=== PATIENT | female | born 1960 | race Caucasian/White ===

== ENCOUNTER 2018-05-14 11:50 | Inpatient (IN) | payer BC ==
--- NOTE | 2018-05-14 11:55 | PDOC ---
History of Present Illness - General Chief Complaint: Cold Symptoms Stated Complaint: fever,cough Time Seen by Provider: 05/14/18 11:54 - History of Present Illness Initial Comments: 05/14/18 12:21 The patient is a 58 year old female with a history of HTN, Asthma who presents for evaluation of cough, difficulty breathing, and fever. The patient reports a several day history of worsening non-productive cough with associated shortness of breath and subjective fevers. The patient states that her symptoms initially began has sinus congestion, but notes they have progressively worsened with notable chills and night sweats. The patient was being evaluated by her union organizer Dr. Iker koch who sent her to the ED for admission. The patient otherwise denies chest pain, nausea, vomiting, abdominal pain, or changes with urination or bowel movements. Past History - Past Medical History Allergies/Adverse Reactions: Allergies Allergy/AdvReac Type Severity Reaction Status Date / Time doxycycline Allergy Severe anaphylaxis Verified 05/14/18 11:51 clarithromycin Allergy Verified 05/14/18 14:16 methazolamide Allergy Verified 05/14/18 11:53 Sulfa (Sulfonamide Allergy Lip Verified 05/14/18 11:51 Antibiotics) swelling Home Medications: Ambulatory Orders Butalb/Acetaminophen/Caffeine [[id number] [id number]] 1 each PO DAILY 05/14/18 Asthma: Yes COPD: No DVT: No HTN: Yes - Suicide/Smoking/Psychosocial Hx Smoking History: Never smoked Substance Use Type: None Review of Systems - Review of Systems Comments:: 05/14/18 12:25 Constitutional: Subjective fevers, Chills, Body aches. No fatigue, HEENT: No Rhinorrhea, nasal congestion, visual changes Cardiovascular: No chest pain, syncope, palpitations, lightheadedness Respiratory: Cough, SOB. Chest congestion. No Hemoptysis, Gastrointestinal: No Abdominal pain, Nausea, Vomiting, Constipation, Diarrhea, Melena Genitourinary: No Dysuria, Frequency, Urgency, Hesitancy, Hematuria, Flank pain Musculoskeletal: No Myalgia, arthralgia Skin: No rashes, itching, bruising, pallor Neurologic: No Headache, Dizziness, Numbness, Weakness, or Tingling Psychiatric: No Hallucinations. No SI or HI *Physical Exam - Physical Exam Comments: 05/14/18 12:26 General Appearance: Nourished. No Apparent Distress HEENT: No Pharyngeal Erythema, Tonsillar Exudate, Tonsillar Erythema Neck: No Cervical Lymphadenopathy Respiratory/Chest: Diffuse inspiratory and expiratory wheezing on exam with diffuse rhonchi Cardiovascular: Regular Rhythm, Regular Rate. No Murmur, Gallops, Rubs Gastrointestinal/Abdominal: Normal Bowel Sounds, Soft. No Guarding, Rebound, Tenderness Musculoskeletal: No CVA Tenderness Extremity: Normal Capillary Refill Integumentary: Normal Color, Dry, Warm Neurologic: Fully Oriented, Alert, Normal Mood/Affect, Normal Response, 05/14/18 12:56 Heart Score/ECG Review #1 ECG reviewed & interpreted by me at: 12:40 General ECG Interpretation: Sinus Rhythm, Normal Intervals, No acute ischemic changes 05/14/18 12:40 Sinus Tachycardia ED Treatment Course - LABORATORY CBC & Chemistry Diagram: 05/15/18 08:22 05/15/18 08:22 Medical Decision Making - Medical Decision Making 05/14/18 12:27 The patient is a 58 year old female with a history of HTN, Asthma who presents for evaluation of cough, difficulty breathing, and fever. Differential includes but is not limited to: Asthma Exacerbation, Pneumonia, Infectious, Metabolic Derangement. Given the patient's history and physical exam, we will obtain a cbc, cmp, troponin, lactate, vbg, ekg, ua, urine culture, blood cultures, EKG, chest plain film to evaluate further. We will treat the patient with duonebs and continue to monitor and reassess while here in the ED. 05/14/18 14:44 CBC, cmp, troponin, lactate, vbg, ua was unremarkable. Chest plain film was unremarkable. The patient will require admission for further management. We discussed the case with the admitting team who accepted the patient for admission. *DC/Admit/Observation/Transfer Diagnosis at time of Disposition: Shortness of breath Asthma exacerbation Qualifiers: Asthma severity: unspecified severity Asthma persistence: unspecified Qualified Code(s): J45.901 - Unspecified asthma with (acute) exacerbation - Discharge Dispostion Condition at time of disposition: Stable Decision to Admit order: Yes - Referrals - Patient Instructions - Post Discharge Activity
[2018-05-14] MEDS ORDERED: ALBUTEROL SO4 2.5/IPRATROPIUM 0.5 INH SOL 3 ML VIAL.NEB. NEB ONE ×2 (12:10→12:31)
[2018-05-14] MEDS ORDERED: ACETAMINOPHEN 325 MG TABLET (FP) PO ONE (12:34)
[2018-05-14] MEDS ORDERED: SODIUM CHLORIDE 0.9% 500 ML INFUS.BAG IV ONE ×2 (12:34)
[2018-05-14 12:35] LABS: BASO % 1.6 % (0-2.0); EOS % 2.5 % (0-4.5); HEMATOCRIT 45.6 % (32.4-45.2); HEMOGLOBIN 14.9 GM/dl (10.7-15.3); LYMPH % 9.9 % (8-40); MCHC 32.6 g/dl (32.0-36.0); MEAN CELL VOLUME 95.2 fl (80-96); MEAN PLT VOLUME 7.4 fl (7.5-11.1); MONO % 6.2 % (3.8-10.2); NEUT % 79.8 % (42.8-82.8); PLATELET COUNT 309 K/MM3 (134-434); RBC 4.79 M/mm3 (3.60-5.2); RDW 12.5 % (11.6-15.6); WHITE BLOOD COUNT 9.1 K/mm3 (4.0-10.8)
[2018-05-14] MEDS ORDERED: ACETAMINOPHEN 325 MG TABLET (FP) ONE (12:44)
[2018-05-14] MEDS ORDERED: MAGNESIUM SULF 50% (8.12 MEQ/2 ML-1 GM VIAL) IVPB ONE (12:55)
[2018-05-14 12:59] LABS: ALBUMIN 4.4 g/dl (3.5-5.0); ALK PHOS 92 U/L (32-92); ANION GAP 13 MMOL/L (8-16); BILIRUBIN,TOTAL 0.5 mg/dl (0.2-1.0); BLOOD UREA NITROGEN 11 mg/dl (7-18); CALCIUM 9.5 mg/dl (8.4-10.2); CHLORIDE 106 mmol/L (98-107); CO2 20 mmol/L (22-28); CREATININE 0.8 mg/dl (0.6-1.3); GLUCOSE,RANDOM 138 mg/dl (74-106); POTASSIUM 3.9 mmol/L (3.5-5.1); SGOT/AST 17 U/L (10-42); SGPT/ALT 18 U/L (10-40); SODIUM 139 mmol/L (136-145); TOT PROT 7.7 g/dl (6.4-8.3)
--- NOTE | 2018-05-14 13:10 | PDOC ---
Attending Attestation - Resident Resident Name: Wilbert Soto - ED Attending Attestation I have performed the following: I have examined & evaluated the patient, The case was reviewed & discussed with the resident, I agree w/resident's findings & plan - HPI HPI: 05/14/18 13:54 Yanch 58 YOF with h/o Asthma and HTN, presenting with chills/ fevers, night sweats, sore throat and productive cough, congestion, SOB, wheezing x 2 days. Denies exacerbating factors. [place] the city and [place], ?sick contacts. PMD: Dr. Blair - Physicial Exam PE: 05/14/18 13:01 Mild distress 2/2 coughing and respiratory distress. MMM, nl conjunctiva, anicteric; no oral lesions, no tonsillary exudate or hypertrophy. oropharynx clear. neck supple. No JVD. +diffuse bilateral wheezing in all [place], + actively coughing. abdomen soft nontender. HAJI x4, no focal neuro deficits. No peripheral edema. normal color for ethnicity, [facility]. 05/14/18 13:55 - Medical Decision Making 05/14/18 13:53 Yanch 58 YOF with h/o Asthma and HTN, presenting with chills/ fevers, night sweats, sore throat and productive cough, congestion, SOB, wheezing x 2 days. Denies exacerbating factors. [place] the city and comm[place] by train, ?sick contacts. sent in by PMD for admission. Vital signs reviewed, notable for fever and tachycardia. normal sats. improved on recheck. Infection Plan: CBC, CMP, sputum culture, blood cx, lactic acid, ECG, trop, CXR. resuscitative IVF, antipyretics, analgesia Prior notes reviewed, including admissions, discharges and consultations. laboratory results and imaging reviewed, basic labs and lytes wnl, neg trop. VBG wnl, but normal sats and improving respiratory status with treatments EKG normal sinus rhythm, no interval abnormalities, narrow QRS, ST and T wave segments and morphology normal. Nonspecific T wave abnormalities, no contiguous lead changes. CXR clear, no pulmonary/cardiac findings. ED course: given IVF x 2 liters NSS, tylenol, solumedrol IV and duonebs for bilateral diffuse wheezing and difficulty breathing. IV Mg 2g for bronchial smooth muscle relaxation. Feels improved with increased expectoration with the bronchodilators, ordered for sputum culture. Hold off on abx as she has multiple drug allergies and still could be asthma/viral etiology/bronchitis, check sputum culture and defer to inpatient team for abx use as she remains stable throughout ED course. Dispo: Admit for acute bronchitis/wheezing, asthma exacerbation despite tx... Discussed results and management plan with pt and family member at bedside, agree with impression and plan. admit to hospitalist, primary Dr. Blair. 05/14/18 14:20 05/14/18 14:22
[2018-05-14] MEDS ORDERED: MAGNESIUM 1GM/D5W - 2 GM/200 ML IVPB IVPB ONE (13:26)
[2018-05-14] MEDS ORDERED: methylPREDNISolone NA SUCC 125 MG/2 ML VIAL IVPUSH ONE (13:50)
--- NOTE | 2018-05-14 13:59 | HP ---
CHIEF COMPLAINT: shortness of breath and fever PCP: Dr Blair HISTORY OF PRESENT ILLNESS: Patient is a 58 y/o obese female, with a past medical history of migraines and asthma. Patient reports cough, shortness of breath with wheezing for the Past week. Patient reports worsening of dyspnea on exertion within the past 24 hours and night sweats and was referred by her primary care physician to the Emergency department for further evaluation. Of note patient reports frequent URIs within the past year, she reports 3 episodes of bronchitis within the past year. ER course was notable for: (1)Chest x-ray no Evidence of acute pulmonary disease (2)temp 101.1 upon arrival (3)spo2 91% (4) wbc 9.0 Recent Travel: [place] 02/12 PAST MEDICAL HISTORY: see hpi PAST SURGICAL HISTORY:None Social History:Resides at home alone employed full-time Smoking:None Alcohol:Social Drugs: none Family History:mother---> biliary stenosis father---> lung CA secondary to mesothelioma Brother---> Asthma complications Allergies doxycycline Allergy (Severe, Verified 05/14/18 11:51) anaphylaxis methazolamide Allergy (Verified 05/14/18 11:53) Sulfa (Sulfonamide Antibiotics) Allergy (Verified 05/14/18 11:51) Lip swelling HOME MEDICATIONS: Home Medications Medication Instructions Recorded Butalb/Acetaminophen/Caffeine 1 each PO DAILY 05/14/18 [[id number]-Bvlt 50-300-40] REVIEW OF SYSTEMS CONSTITUTIONAL: Present: fever, chills, diaphoresis, generalized weakness, malaise Absent: loss of appetite, weight change HEENT: Absent: rhinorrhea, nasal congestion, throat pain, throat swelling, difficulty swallowing, mouth swelling, ear pain, eye pain, visual changes CARDIOVASCULAR: Absent: chest pain, syncope, palpitations, irregular heart rate, lightheadedness , peripheral edema RESPIRATORY: present: cough, shortness of breath, dyspnea with exertion Absent: orthopnea, wheezing, stridor, hemoptysis GASTROINTESTINAL: Absent: abdominal pain, abdominal distension, nausea, vomiting, diarrhea, constipation, melena, hematochezia GENITOURINARY: Absent: dysuria, frequency, urgency, hesitancy, hematuria, flank pain, genital pain MUSCULOSKELETAL: Absent: myalgia, arthralgia, joint swelling, back pain, neck pain SKIN: Absent: rash, itching, pallor HEMATOLOGIC/IMMUNOLOGIC: Absent: easy bleeding, easy bruising, lymphadenopathy, frequent infections ENDOCRINE: Absent: unexplained weight gain, unexplained weight loss, heat intolerance, cold intolerance NEUROLOGIC: Absent: headache, focal weakness or paresthesias, dizziness, unsteady gait, seizure, mental status changes, bladder or bowel incontinence PSYCHIATRIC: Absent: anxiety, depression, suicidal or homicidal ideation, hallucinations. PHYSICAL EXAMINATION Vital Signs - 24 hr 05/14/18 11:51 Temperature 101.1 F H Pulse Rate 102 H Respiratory 19 Rate Blood Pressure 153/95 O2 Sat by Pulse 94 L Oximetry (%) GENERAL: obese, Awake, alert, and fully oriented, in no acute distress. HEAD: Normal with no signs of trauma. EYES: Pupils equal, round and reactive to light, extraocular movements intact, sclera anicteric, conjunctiva clear. No lid lag. EARS, NOSE, THROAT: Ears normal, nares patent, oropharynx clear without exudates. Moist mucous membranes. NECK: Normal range of motion, supple without lymphadenopathy, JVD, or masses. LUNGS: Breath sounds equal, Rhonchi to bilateral apexes, diminished, wheezing to bilateral bases, no accessory muscle use. HEART: Regular rate and rhythm, normal S1 and S2 without murmur, rub or gallop. ABDOMEN: Soft, nontender, not distended, normoactive bowel sounds, no guarding, no rebound, no masses. No hepatomegaly or splenomegaly. MUSCULOSKELETAL: Normal range of motion at all joints. No bony deformities or tenderness. No CVA tenderness. UPPER EXTREMITIES: 2+ pulses, warm, well-perfused. No cyanosis. No clubbing. No peripheral edema. LOWER EXTREMITIES: 2+ pulses, warm, well-perfused. No calf tenderness. No peripheral edema. NEUROLOGICAL: Cranial nerves II-XII intact. Normal speech. Normal gait. PSYCHIATRIC: Cooperative. Good eye contact. Appropriate mood and affect. SKIN: Warm, dry, normal turgor, no rashes or lesions noted, normal capillary refill. Laboratory Results - last 24 hr 05/14/18 05/14/18 05/14/18 12:06 12:06 12:29 WBC 9.1 RBC 4.79 Hgb 14.9 Hct 45.6 H MCV 95.2 MCH 31.0 MCHC 32.6 RDW 12.5 Plt Count 309 MPV 7.4 L Absolute Neuts (auto) 7.3 Neutrophils % 79.8 Lymphocytes % 9.9 Monocytes % 6.2 Eosinophils % 2.5 Basophils % 1.6 Sodium 139 Potassium 3.9 Chloride 106 Carbon Dioxide 20 L Anion Gap 13 BUN 11 Creatinine 0.8 Creat Clearance w eGFR > 60 Random Glucose 138 H D Calcium 9.5 Total Bilirubin 0.5 AST 17 D ALT 18 D Alkaline Phosphatase 92 Troponin I < 0.03 Total Protein 7.7 Albumin 4.4 ASSESSMENT/PLAN: 1) pulm COPD excerbation - Chest x-ray reviewed, pending CT of chest, notable wheezing on exam, we will start Solu-Medrol 40 mg qid with taper as appropriate. - Symbicort ordered in substitution for Qvar, starts standing duo nebs - Keep SpO2 above 92% with supplemental O2 as needed - MAXIMUM TEMPERATURE 101.0 no leukocytosis noted pending blood cultures, will start empiric Zithromax patient reports she has taken Zithromax in the past last dose was December 2017 with no adverse reaction - appreciate the input of jewish thought professor 2) neuro migraine headaches - continue fiorcet f/e/n - regular diet - replete electrolytes prn ppx lovenox pepcid dispo: pt requires inpatient admission Visit type - Emergency Visit Emergency Visit: Yes ED Registration Date: 05/14/18 Care time: The patient presented to the Emergency Department on the above date and was hospitalized for further evaluation of their emergent condition. - New Patient This patient is new to me today: Yes Date on this admission: 05/14/18 - Critical Care Critical Care patient: No Hospitalist Screening - Colonoscopy Questionnaire Colonoscopy Questionnaire: Colonoscopy Questionnaire - Patient: 50 - 75 years old and never had a screening colonoscopy: No History of colon or rectal polyps, or CA: No History of IBD, Crohn's disease or UC: No History of abdominal radiation therapy as a child: No - Relative: 1 with colon or rectal CA, or polyps at age 60 or younger: No Colon or rectal CA diagnosed at age 45 or younger: No Multiple relatives with colon or rectal CA: No - Outcome: Screening Result: Negative Screen
[2018-05-14] MEDS ORDERED: TOPIRAMATE 25 MG TABLET (FP) PO SCH (14:00)
[2018-05-14] MEDS ORDERED: ACETAMINOPHEN/CAFFEINE/BUTALBITAL 1 TAB PO PRN (14:00)
[2018-05-14 14:05] LABS: VENOUS PH 7.41 (7.32-7.42); VENOUS PO2 44.7 mmHg (28-48)
[2018-05-14] MEDS ORDERED: methylPREDNISolone NA SUCC 125 MG/2 ML VIAL ONE (14:17)
[2018-05-14] MEDS ORDERED: AZITHROMYCIN IVPB 500 MG in DEXTROSE 5%-WATER - 250 ML IVPB ONE (14:19)
[2018-05-14] MEDS ORDERED: ZOLPIDEM TARTRATE 5 MG TABLET PO PRN (14:24)
[2018-05-14] MEDS ORDERED: ACETAMINOPHEN 325 MG TABLET (FP) PO PRN (14:24)
[2018-05-14] MEDS ORDERED: AZITHROMYCIN 500 MG VIAL IVPB ONE (15:01)
--- NOTE | 2018-05-14 16:12 | CON.PULM ---
Consult Consult Specialty:: PULMONARY Referred by:: ANGIE Reason for Consultation:: SOB/COUGH/WHEEZE - History of Present Illness Chief Complaint: SOB/COUGH/WHEEZE History of Present Illness: The patient is a 58 year old female with a history of HTN, Asthma who presents for evaluation of cough, difficulty breathing, and fever. The patient reports a several day history of worsening non-productive cough with associated shortness of breath and subjective fevers. The patient states that her symptoms initially began has sinus congestion, but notes they have progressively worsened with notable chills and night sweats. The patient was examined by me in the clinic and referred to ER for admission. The patient otherwise denies chest pain, nausea, vomiting, abdominal pain, or changes with urination or bowel movements. - History Source History Provided By: Patient, Medical Record Limitations to Obtaining History: No Limitations - Past Medical History SHAKER TENDER: No: Alzheimer's Cardio/Vascular: No: AFIB Pulmonary: Yes: Asthma, COPD. No: O2 Dependent Gastrointestinal: No: Ascites Hepatobiliary: No: Cirrhosis Renal/: No: Renal Failure Reproductive: Yes: Postmenopausal Heme/Onc: No: Anemia - Alcohol/Substance Use Hx Alcohol Use: No - Smoking History Smoking history: Never smoked - Social History Usual Living Arrangement: With Spouse Place of : [facility] History of Recent Travel: No Home Medications - Allergies Allergies/Adverse Reactions: Allergies Allergy/AdvReac Type Severity Reaction Status Date / Time doxycycline Allergy Severe anaphylaxis Verified 05/14/18 11:51 clarithromycin Allergy Verified 05/14/18 14:16 methazolamide Allergy Verified 05/14/18 11:53 Sulfa (Sulfonamide Allergy Lip Verified 05/14/18 11:51 Antibiotics) swelling - Home Medications Home Medications: Ambulatory Orders Butalb/Acetaminophen/Caffeine [[id number]-Cfgk 50-300-40] 1 each PO DAILY 05/14/18 Family Disease History - Family Disease History Family History: Unremarkable Review of Systems - Review of Systems Constitutional: reports: Fever, Loss of Appetite Eyes: denies: Blurred Vision HENT: denies: Difficult Swallowing Neck: denies: Decreased ROM Cardiovascular: reports: Shortness of Breath. denies: Chest Pain Respiratory: reports: Cough, Exercise Intolerance, SOB on Exertion, Wheezing. denies: Hemoptysis Gastrointestinal: reports: No Symptoms Genitourinary: reports: No Symptoms Breasts: reports: No Symptoms Reported Musculoskeletal: reports: No Symptoms Integumentary: reports: No Symptoms Physical Exam Vital Sings: Vital Signs Temperature 99.7 F H 05/14/18 15:00 Pulse Rate 87 05/14/18 15:00 Respiratory Rate 18 05/14/18 15:00 Blood Pressure 130/86 05/14/18 15:00 O2 Sat by Pulse Oximetry (%) 99 05/14/18 15:00 Constitutional: Yes: Anxious Eyes: Yes: EOM Intact HENT: Yes: Normocephalic Neck: Yes: Trachea Midline Cardiovascular: Yes: S1, S2 Respiratory: Yes: Diminished, Rhonchi, Wheezes Gastrointestinal: Yes: Normal Bowel Sounds Extremities: Yes: WNL Neurological: Yes: Alert Labs: CBC, BMP 05/14/18 12:29 05/14/18 12:06 rest reviewed Imaging - Results Chest X-ray: Report Reviewed, Image Reviewed Cat Scan: Report Reviewed, Image Reviewed Problem List - Problems (1) Acute bronchitis with asthma Code(s): J20.9 - ACUTE BRONCHITIS, UNSPECIFIED; J45.909 - UNSPECIFIED ASTHMA, UNCOMPLICATED Assessment/Plan o2/steroids/antibiotics/bronchodilators/singulair will follow Leatha RUIZ MD
[2018-05-14] MEDS: ALBUTEROL SO4 2.5/IPRATROPIUM 0.5 INH SOL 3 ML VIAL.NEB. NEB SCH ×2 (17:00→20:13)
[2018-05-14 17:02] VITALS: BMI 35.6
[2018-05-14] MEDS: methylPREDNISolone NA SUCC 40 MG/1 ML VIAL IVPUSH SCH (20:13)
[2018-05-14] MEDS ORDERED: PT OWN MED DRAWER 7, Y5N ONE (21:19)
[2018-05-14] MEDS: TOPIRAMATE 25 MG TABLET (FP) PO SCH (21:28)
[2018-05-14 23:42] LABS: URINE APPEARANCE Clear; URINE BILIRUBIN Negative (NEGATIVE); URINE COLOR Yellow; URINE GLUCOSE (UA) Trace (NEGATIVE); URINE KETONE Negative (NEGATIVE); URINE LEUK ESTERASE 1+ (NEGATIVE); URINE NITRITE Negative (NEGATIVE); URINE PROTEIN Trace (NEGATIVE); URINE UROBILINOGEN 0.2 (0.2-1.0)
[2018-05-14] MEDS: BUDESONIDE/FORMETEROL FUMARATE 80/4.5 mcg INHALER IH SCH (23:45)
[2018-05-14 23:47] LABS: EPI CELLS FEW /HPF
[2018-05-14 23:48] LABS: URINE BACTERIA MODERATE /hpf (NEGATIVE)
[2018-05-15] MEDS: methylPREDNISolone NA SUCC 40 MG/1 ML VIAL IVPUSH SCH ×4 (01:23→20:37)
[2018-05-15] MEDS ORDERED: AZITHROMYCIN IVPB 250 MG in DEXTROSE 5%-WATER - 250 ML IVPB ONE (07:50)
[2018-05-15] MEDS: ALBUTEROL SO4 2.5/IPRATROPIUM 0.5 INH SOL 3 ML VIAL.NEB. NEB SCH ×4 (07:51→20:38)
[2018-05-15 08:53] LABS: MAGNESIUM 2.5 mg/dL (1.8-2.4)
[2018-05-15 09:07] LABS: BASO % 0.3 % (0-2.0); EOS % 0.3 % (0-4.5); HEMATOCRIT 40.2 % (32.4-45.2); HEMOGLOBIN 13.3 GM/dl (10.7-15.3); LYMPH % 17.3 % (8-40); MCH 31.7 pg (25.7-33.7); MCHC 32.9 g/dl (32.0-36.0); MEAN CELL VOLUME 96.3 fl (80-96); MEAN PLT VOLUME 7.8 fl (7.5-11.1); MONO % 7.3 % (3.8-10.2); NEUT % 74.8 % (42.8-82.8); PLATELET COUNT 271 K/MM3 (134-434); RBC 4.18 M/mm3 (3.60-5.2); RDW 12.8 % (11.6-15.6)
--- NOTE | 2018-05-15 09:08 | PN ---
Physical Exam: SUBJECTIVE: Patient seen and examined patient reports really slightly improved less cough, less dyspnea OBJECTIVE: Patient is a 58 y/o obese female, with a past medical history of migraines and asthma. patient was admitted from the emergency department for acute asthma exacerbation. Vital Signs Period Temp Pulse Resp BP Sys/Le Pulse Ox Last 24 Hr 98.9 F-101.1 F 74-102 17-19 124-153/70-95 94-99 GENERAL: The patient is awake, alert, and fully oriented, in no acute distress. HEAD: Normal with no signs of trauma. EYES: PERRL, extraocular movements intact, sclera anicteric, conjunctiva clear. No ptosis. ENT: Ears normal, nares patent, oropharynx clear without exudates, moist mucous membranes. NECK: Trachea midline, full range of motion, supple. LUNGS: Breath sounds equal, course rhonchi to apexes, diminished to base, with inspiratory wheeze, no crackles, no accessory muscle use. HEART: Regular rate and rhythm, S1, S2 without murmur, rub or gallop. ABDOMEN: Soft, nontender, nondistended, normoactive bowel sounds, no guarding, no rebound, no hepatosplenomegaly, no masses. EXTREMITIES: 2+ pulses, warm, well-perfused, no edema. NEUROLOGICAL: Cranial nerves II through XII grossly intact. Normal speech, gait not observed. PSYCH: Normal mood, normal affect. SKIN: Warm, dry, normal turgor, no rashes or lesions noted Laboratory Results - last 24 hr 05/14/18 05/14/18 05/14/18 12:06 12:06 12:06 WBC RBC Hgb Hct MCV MCH MCHC RDW Plt Count MPV Absolute Neuts (auto) Neutrophils % Lymphocytes % Monocytes % Eosinophils % Basophils % VBG pH POC VBG pCO2 POC VBG pO2 Mixed VBG HCO3 Sodium 139 Potassium 3.9 Chloride 106 Carbon Dioxide 20 L Anion Gap 13 BUN 11 Creatinine 0.8 Creat Clearance w eGFR > 60 Random Glucose 138 H D Lactic Acid 1.3 Calcium 9.5 Phosphorus Magnesium Total Bilirubin 0.5 AST 17 D ALT 18 D Alkaline Phosphatase 92 Troponin I < 0.03 Total Protein 7.7 Albumin 4.4 Urine Color Urine Appearance Urine pH Ur Specific [place] Urine Protein Urine Glucose (UA) Urine Ketones Urine Blood Urine Nitrite Urine Bilirubin Urine Urobilinogen Ur Leukocyte Esterase Urine RBC Urine WBC Ur Epithelial Cells Urine Bacteria 05/14/18 05/14/18 05/14/18 12:29 12:29 23:30 WBC 9.1 RBC 4.79 Hgb 14.9 Hct 45.6 H MCV 95.2 MCH 31.0 MCHC 32.6 RDW 12.5 Plt Count 309 MPV 7.4 L Absolute Neuts (auto) 7.3 Neutrophils % 79.8 Lymphocytes % 9.9 Monocytes % 6.2 Eosinophils % 2.5 Basophils % 1.6 VBG pH 7.41 POC VBG pCO2 34.0 L POC VBG pO2 44.7 Mixed VBG HCO3 21.0 Sodium Potassium Chloride Carbon Dioxide Anion Gap BUN Creatinine Creat Clearance w eGFR Random Glucose Lactic Acid Calcium Phosphorus Magnesium Total Bilirubin AST ALT Alkaline Phosphatase Troponin I Total Protein Albumin Urine Color Yellow Urine Appearance Clear Urine pH 8.0 Ur Specific [place] 1.015 Urine Protein Trace Urine Glucose (UA) Trace Urine Ketones Negative Urine Blood 1+ H Urine Nitrite Negative Urine Bilirubin Negative Urine Urobilinogen 0.2 Ur Leukocyte Esterase 1+ H Urine RBC 5-10 Urine WBC 10-20 Ur Epithelial Cells Few Urine Bacteria Moderate 05/15/18 08:22 WBC RBC Hgb Hct MCV MCH MCHC RDW Plt Count MPV Absolute Neuts (auto) Neutrophils % Lymphocytes % Monocytes % Eosinophils % Basophils % VBG pH POC VBG pCO2 POC VBG pO2 Mixed VBG HCO3 Sodium Potassium Chloride Carbon Dioxide Anion Gap BUN Creatinine Creat Clearance w eGFR Random Glucose Lactic Acid Calcium Phosphorus 2.8 Magnesium 2.5 H Total Bilirubin AST ALT Alkaline Phosphatase Troponin I Total Protein Albumin Urine Color Urine Appearance Urine pH Ur Specific [place] Urine Protein Urine Glucose (UA) Urine Ketones Urine Blood Urine Nitrite Urine Bilirubin Urine Urobilinogen Ur Leukocyte Esterase Urine RBC Urine WBC Ur Epithelial Cells Urine Bacteria Active Medications Generic Name Dose Route Start Last Admin Trade Name Freq PRN Reason Stop Dose Admin Acetaminophen 650 mg 05/14/18 14:24 Tylenol - PO Q4H PRN FEVER Acetaminophen/Butalbital/Caffeine 1 tablet 05/14/18 14:00 Fioricet - PO DAILY PRN HEADACHE Albuterol/Ipratropium 1 amp 05/14/18 16:00 05/15/18 07:51 Duoneb - NEB 1 amp RQID ORLIN Administration Budesonide/Formoterol Fumarate 2 puff 05/14/18 22:00 05/14/18 23:45 Symbicort 80/4.5mcg - IH 2 puff BID ORLIN Administration Citalopram Hydrobromide 40 mg 05/15/18 10:00 Celexa - PO DAILY ORLIN Enoxaparin Sodium 40 mg 05/15/18 10:00 Lovenox - SQ DAILY ORLIN Famotidine 40 mg 05/15/18 10:00 Pepcid - PO DAILY ORLIN Azithromycin 250 mg/ Dextrose 250 mls @ 250 mls/hr 05/15/18 10:00 IVPB DAILY ORLIN Methylprednisolone Sodium Succinate 40 mg 05/14/18 20:00 05/15/18 07:51 Solu-Medrol - IVPUSH 40 mg Q6H ORLIN Administration Metoprolol Succinate 100 mg 05/14/18 22:00 05/14/18 21:28 Toprol Xl - PO 100 mg HS ORLIN Administration Montelukast Sodium 10 mg 05/15/18 22:00 Singulair - PO HS ORLIN Topiramate 25 mg 05/15/18 10:00 Topamax - PO DAILY@1000 ORLIN Topiramate 50 mg 05/14/18 22:00 05/14/18 21:28 Topamax - PO 50 mg HS ORLIN Administration Zolpidem Tartrate 5 mg 05/14/18 14:24 Ambien - PO HS PRN INSOMNIA Microbiology 05/14/18 14:30 Nasopharyngeal Swab Influenza Types A,B Antigen - Final, negative 05/14/18 14:30 Nasopharyngeal Swab - Final, negative IMAGING chest xray: no acute pathology ct of chest: no acute pathology ASSESSMENT/PLAN: 1) pulm asthma excerbation -ct of chest reviewed, wheezing noted on exam with moist cough, will continue solumedrol at same dose. - continue Symbicort and standing duo nebs - Keep SpO2 above 92% with supplemental O2 as needed - low grade temp noted, [place], will order lyme' s titers, will follow blood cultures - continue empiric Zithromax patient reports she has taken Zithromax in the past last dose was December 2017 with no adverse reaction - pulmonary consulted and followed 2) neuro migraine headaches - continue fiorcet f/e/n - regular diet - replete electrolytes prn ppx lovenox pepcid dispo: pt requires inpatient admission Visit type - Emergency Visit Emergency Visit: Yes ED Registration Date: 05/14/18 Care time: The patient presented to the Emergency Department on the above date and was hospitalized for further evaluation of their emergent condition. - New Patient This patient is new to me today: No - Critical Care Critical Care patient: No - Discharge Referral [facility]erred to [facility] No
[2018-05-15] MEDS: CITALOPRAM HYDROBROMIDE 20 MG TABLET (FP) PO SCH (09:42)
[2018-05-15] MEDS: ENOXAPARIN NA (PORCINE) 40 MG/0.4 ML DISP.SYRIN SQ SCH (09:43)
[2018-05-15] MEDS: FAMOTIDINE 20 MG TABLET PO SCH (09:43)
[2018-05-15] MEDS: BUDESONIDE/FORMETEROL FUMARATE 80/4.5 mcg INHALER IH SCH (09:44)
[2018-05-15] MEDS: TOPIRAMATE 25 MG TABLET (FP) PO SCH ×2 (09:44→21:00)
[2018-05-15] MEDS: AZITHROMYCIN IVPB 250 MG in DEXTROSE 5%-WATER - 250 ML IVPB SCH (09:44)
--- NOTE | 2018-05-15 09:58 | PN ---
Progress Note, Physician History of Present Illness: PULMONARY FEELING BETTER,LESS DYSPNEIC,+ COUGH - Current Medication List Current Medications: Active Medications Acetaminophen (Tylenol -) 650 mg PO Q4H PRN PRN Reason: FEVER Acetaminophen/Butalbital/Caffeine (Fioricet -) 1 tablet PO DAILY PRN PRN Reason: HEADACHE Albuterol/Ipratropium (Duoneb -) 1 amp NEB RQID COUNTS INCLUDE 234 BEDS AT THE [facility] Last Admin: 05/15/18 07:51 Dose: 1 amp Budesonide/Formoterol Fumarate (Symbicort 80/4.5mcg -) 2 puff IH BID COUNTS INCLUDE 234 BEDS AT THE [facility] Last Admin: 05/15/18 09:44 Dose: 2 puff Citalopram Hydrobromide (Celexa -) 40 mg PO DAILY COUNTS INCLUDE 234 BEDS AT THE [facility] Last Admin: 05/15/18 09:42 Dose: 40 mg Enoxaparin Sodium (Lovenox -) 40 mg SQ DAILY COUNTS INCLUDE 234 BEDS AT THE [facility] Last Admin: 05/15/18 09:43 Dose: 40 mg Famotidine (Pepcid -) 40 mg PO DAILY COUNTS INCLUDE 234 BEDS AT THE [facility] Last Admin: 05/15/18 09:43 Dose: 40 mg Azithromycin 250 mg/ Dextrose 250 mls @ 250 mls/hr IVPB DAILY COUNTS INCLUDE 234 BEDS AT THE [facility] Last Admin: 05/15/18 09:44 Dose: 250 mls/hr Methylprednisolone Sodium Succinate (Solu-Medrol -) 40 mg IVPUSH Q6H COUNTS INCLUDE 234 BEDS AT THE [facility] Last Admin: 05/15/18 07:51 Dose: 40 mg Metoprolol Succinate (Toprol Xl -) 100 mg PO HS COUNTS INCLUDE 234 BEDS AT THE [facility] Last Admin: 05/14/18 21:28 Dose: 100 mg Montelukast Sodium (Singulair -) 10 mg PO HS COUNTS INCLUDE 234 BEDS AT THE [facility] Topiramate (Topamax -) 25 mg PO DAILY@1000 COUNTS INCLUDE 234 BEDS AT THE [facility] Last Admin: 05/15/18 09:44 Dose: 25 mg Topiramate (Topamax -) 50 mg PO HS COUNTS INCLUDE 234 BEDS AT THE [facility] Last Admin: 05/14/18 21:28 Dose: 50 mg Zolpidem Tartrate (Ambien -) 5 mg PO HS PRN PRN Reason: INSOMNIA - Objective Vital Signs: Vital Signs Temperature 98.9 F 05/15/18 06:41 Pulse Rate 74 05/15/18 06:41 Respiratory Rate 18 05/15/18 06:41 Blood Pressure 124/71 05/15/18 06:41 O2 Sat by Pulse Oximetry (%) 96 09/18/18 09:00 Constitutional: Yes: Well Nourished, Calm Eyes: Yes: WNL HENT: Yes: WNL Neck: Yes: WNL Cardiovascular: Yes: Regular Rate and Rhythm, S1, S2 Respiratory: Yes: Wheezes (SCATTEREED ROSAURA WHEEZES) Gastrointestinal: Yes: Normal Bowel Sounds, Soft Extremities: Yes: WNL Edema: No Labs: CBC, BMP 05/15/18 08:22 Assessment/Plan Problem List - Problems (1) Acute bronchitis with asthma Code(s): J20.9 - ACUTE BRONCHITIS, UNSPECIFIED; J45.909 - UNSPECIFIED ASTHMA, UNCOMPLICATED 2 HTN Assessment/Plan o2 steroids same dose antibiotics bronchodilators singulair peak flow pfts outpatient DR BLAND
[2018-05-15] MEDS ORDERED: FAMOTIDINE 40 MG PO SCH (10:00)
[2018-05-15] MEDS ORDERED: PATIENT'S OWN MEDICATION (NON-FORMULARY) (Citalopram Hydrobromide [Citalopram Hbr] 40 MG) PO SCH (10:00)
[2018-05-15 10:24] LABS: ANION GAP 9 MMOL/L (8-16); BLOOD UREA NITROGEN 12 mg/dl (7-18); CALCIUM 8.9 mg/dl (8.4-10.2); CHLORIDE 109 mmol/L (98-107); CO2 20 mmol/L (22-28); CREATININE 0.8 mg/dl (0.6-1.3); GLUCOSE,RANDOM 128 mg/dl (74-106); POTASSIUM 4.5 mmol/L (3.5-5.1); SODIUM 138 mmol/L (136-145)
[2018-05-15 10:25] LABS: PHOSPHOROUS 2.9 mg/dl (2.5-4.6)
[2018-05-15] MEDS: BUDESONIDE/FORMETEROL FUMARATE 160/4.5 mcg INHALER IH SCH ×2 (11:10→21:21)
--- NOTE | 2018-05-15 16:44 | EKG ---
Test Reason : Blood Pressure : / mmHG Vent. Rate : 099 BPM Atrial Rate : 099 BPM P-R Int : 158 ms QRS Dur : 078 ms QT Int : 354 ms P-R-T Axes : 055 -04 049 degrees QTc Int : 454 ms NORMAL SINUS RHYTHM NORMAL ECG NO PREVIOUS ECGS AVAILABLE Confirmed by Shashank Maria ([id number]) on 05/15/2018 4:44:19 PM Referred By: DONTAE FRIAS Confirmed By:Shashank Maria
[2018-05-15] MEDS ORDERED: PT OWN MED DRAWER 7, Y5N ONE (20:04)
[2018-05-15] MEDS: MONTELUKAST NA 10 MG TABLET PO SCH (21:00)
[2018-05-16] MEDS: methylPREDNISolone NA SUCC 40 MG/1 ML VIAL IVPUSH SCH ×4 (03:07→21:18)
[2018-05-16 08:18] LABS: BASO % 0.3 % (0-2.0); EOS % 1.1 % (0-4.5); HEMATOCRIT 39.5 % (32.4-45.2); HEMOGLOBIN 13.1 GM/dl (10.7-15.3); LYMPH % 13.2 % (8-40); MCH 31.9 pg (25.7-33.7); MCHC 33.1 g/dl (32.0-36.0); MEAN CELL VOLUME 96.5 fl (80-96); MEAN PLT VOLUME 7.8 fl (7.5-11.1); MONO % 5.6 % (3.8-10.2); NEUT % 79.8 % (42.8-82.8); PLATELET COUNT 281 K/MM3 (134-434); RBC 4.09 M/mm3 (3.60-5.2); WHITE BLOOD COUNT 7.9 K/mm3 (4.0-10.8)
[2018-05-16 08:22] LABS: ANION GAP 9 MMOL/L (8-16); BLOOD UREA NITROGEN 18 mg/dl (7-18); CHLORIDE 108 mmol/L (98-107); CO2 24 mmol/L (22-28); CREATININE 0.7 mg/dl (0.6-1.3); GLUCOSE,RANDOM 120 mg/dl (74-106); MAGNESIUM 2.2 mg/dL (1.8-2.4); POTASSIUM 4.7 mmol/L (3.5-5.1); SODIUM 141 mmol/L (136-145)
[2018-05-16] MEDS: ALBUTEROL SO4 2.5/IPRATROPIUM 0.5 INH SOL 3 ML VIAL.NEB. NEB SCH ×4 (08:24→21:18)
[2018-05-16] MEDS ORDERED: PT OWN MED DRAWER 7, Y5N ONE ×2 (09:54→20:52)
[2018-05-16] MEDS: AZITHROMYCIN IVPB 250 MG in DEXTROSE 5%-WATER - 250 ML IVPB SCH (10:18)
[2018-05-16] MEDS: BUDESONIDE/FORMETEROL FUMARATE 160/4.5 mcg INHALER IH SCH ×2 (10:18→21:20)
[2018-05-16] MEDS: ENOXAPARIN NA (PORCINE) 40 MG/0.4 ML DISP.SYRIN SQ SCH (10:20)
[2018-05-16] MEDS: FAMOTIDINE 20 MG TABLET PO SCH (10:21)
[2018-05-16] MEDS: CITALOPRAM HYDROBROMIDE 20 MG TABLET (FP) PO SCH (10:21)
[2018-05-16] MEDS: TOPIRAMATE 25 MG TABLET (FP) PO SCH ×2 (10:22→21:18)
--- NOTE | 2018-05-16 13:55 | PN ---
Physical Exam: SUBJECTIVE: Patient seen and examined, reports less shortness of breath, denies any fever, reports less cough OBJECTIVE:Patient is a 58 y/o obese female, with a past medical history of migraines and asthma. patient was admitted from the emergency department for acute asthma exacerbation. Vital Signs Period Temp Pulse Resp BP Sys/Le Pulse Ox Last 24 Hr 98.2 F-98.5 F 70-91 18-99 110-145/62-82 92-99 GENERAL: The patient is awake, alert, and fully oriented, in no acute distress. HEAD: Normal with no signs of trauma. EYES: PERRL, extraocular movements intact, sclera anicteric, conjunctiva clear. No ptosis. ENT: Ears normal, nares patent, oropharynx clear without exudates, moist mucous membranes. NECK: Trachea midline, full range of motion, supple. LUNGS: Breath sounds equal, course rhonchi to apexes, diminished to base, with inspiratory wheeze, no crackles, no accessory muscle use. HEART: Regular rate and rhythm, S1, S2 without murmur, rub or gallop. ABDOMEN: Soft, nontender, nondistended, normoactive bowel sounds, no guarding, no rebound, no hepatosplenomegaly, no masses. EXTREMITIES: 2+ pulses, warm, well-perfused, no edema. NEUROLOGICAL: Cranial nerves II through XII grossly intact. Normal speech, gait not observed. PSYCH: Normal mood, normal affect. SKIN: Warm, dry, normal turgor, no rashes or lesions noted Laboratory Results - last 24 hr 05/16/18 05/16/18 07:30 07:30 WBC 7.9 RBC 4.09 Hgb 13.1 Hct 39.5 MCV 96.5 H MCH 31.9 MCHC 33.1 RDW 13.0 Plt Count 281 MPV 7.8 Absolute Neuts (auto) 6.4 Neutrophils % 79.8 Lymphocytes % 13.2 Monocytes % 5.6 Eosinophils % 1.1 Basophils % 0.3 Sodium 141 Potassium 4.7 Chloride 108 H Carbon Dioxide 24 Anion Gap 9 BUN 18 Creatinine 0.7 Creat Clearance w eGFR > 60 Random Glucose 120 H Calcium 9.0 Magnesium 2.2 Active Medications Generic Name Dose Route Start Last Admin Trade Name Freq PRN Reason Stop Dose Admin Acetaminophen 650 mg 05/14/18 14:24 Tylenol - PO Q4H PRN FEVER Acetaminophen/Butalbital/Caffeine 1 tablet 05/14/18 14:00 Fioricet - PO DAILY PRN HEADACHE Albuterol/Ipratropium 1 amp 05/14/18 16:00 05/16/18 08:24 Duoneb - NEB 1 amp RQID ORLIN Administration Budesonide/Formoterol Fumarate 2 puff 05/15/18 10:30 05/16/18 10:18 Symbicort 160/4.5mcg - IH 2 puff BID ORLIN Administration Citalopram Hydrobromide 40 mg 05/15/18 10:00 05/16/18 10:21 Celexa - PO 40 mg DAILY ORLIN Administration Enoxaparin Sodium 40 mg 05/15/18 10:00 05/16/18 10:20 Lovenox - SQ 40 mg DAILY ORLIN Administration Famotidine 40 mg 05/15/18 10:00 05/16/18 10:21 Pepcid - PO 40 mg DAILY ORLIN Administration Azithromycin 250 mg/ Dextrose 250 mls @ 250 mls/hr 05/15/18 10:00 05/16/18 10 :18 IVPB 250 mls/hr DAILY ORLIN Administration Methylprednisolone Sodium Succinate 40 mg 05/14/18 20:00 05/16/18 08:25 Solu-Medrol - IVPUSH 40 mg Q6H ORLIN Administration Metoprolol Succinate 100 mg 05/14/18 22:00 05/15/18 21:00 Toprol Xl - PO 100 mg HS ORLIN Administration Montelukast Sodium 10 mg 05/15/18 22:00 05/15/18 21:00 Singulair - PO 10 mg HS ORLIN Administration Topiramate 25 mg 05/15/18 10:00 05/16/18 10:22 Topamax - PO 25 mg DAILY@1000 ORLIN Administration Topiramate 50 mg 05/14/18 22:00 05/15/18 21:00 Topamax - PO 50 mg HS ORLIN Administration Zolpidem Tartrate 5 mg 05/14/18 14:24 Ambien - PO HS PRN INSOMNIA Microbiology 05/14/18 12:18 Blood Culture - Preliminary Blood - Peripheral Venous NO GROWTH OBTAINED AFTER 48 HOURS, INCUBATION TO CONTINUE FOR 3 DAYS. 05/14/18 12:06 Blood Culture - Preliminary Blood - Peripheral Venous NO GROWTH OBTAINED AFTER 48 HOURS, INCUBATION TO CONTINUE FOR 3 DAYS. 05/14/18 23:30 Urine Culture - Final Urine - Urine Clean Catch Contaminated: Please Repeat IMAGING chest xray: no acute pathology ct of chest: no acute pathology ASSESSMENT/PLAN: 1) pulm asthma excerbation - decrease solumedrol to tid . - continue Symbicort and standing duo nebs - Keep SpO2 above 92% with supplemental O2 as needed - Itching to Arm during Zithromax administration will discontinue Zithromax of blood cultures negative to date patient is afebrile and no leukocytosis is noted will hold off on antibiotics - pulmonary consulted and followed 2) neuro migraine headaches - continue fiorcet f/e/n - regular diet - replete electrolytes prn ppx lovenox pepcid dispo: pt requires inpatient admission Visit type - Emergency Visit Emergency Visit: Yes ED Registration Date: 05/14/18 Care time: The patient presented to the Emergency Department on the above date and was hospitalized for further evaluation of their emergent condition. - New Patient This patient is new to me today: No - Critical Care Critical Care patient: No - Discharge Referral Referred to [facility] Med P.C.: No
[2018-05-16] MEDS ORDERED: methylPREDNISolone NA SUCC 40 MG/1 ML VIAL IVPUSH SCH (14:00)
--- NOTE | 2018-05-16 16:47 | PN ---
Progress Note (short form) - Note Progress Note: PULMONARY REMAINS CONGESTED WITH COUGH AND WHEEZE LOW GRADE TEMP ANICTERIC SCATTERED B/L RHONCHI LESS WHEEZE S1S2 BS+ NO EDEMA LABS/MEDS/MICRO/NOTES IMAGES REVIEWED ACUTE ASTHMATIC BRONCHITIS CONTINUE PRESENT TREATMENT HAVE INCREASED SOLUMEDROL TO 40MG Q6 R JOSEPH GRAMAJO Problem List - Problems (1) Acute bronchitis with asthma Code(s): J20.9 - ACUTE BRONCHITIS, UNSPECIFIED; J45.909 - UNSPECIFIED ASTHMA, UNCOMPLICATED
[2018-05-16] MEDS: MONTELUKAST NA 10 MG TABLET PO SCH (21:19)
[2018-05-17] MEDS ORDERED: MAG HYDROX/AL HYDROX/SIMETH -MYLANTA- ORAL SUSPENSION PO ONE (00:49)
[2018-05-17] MEDS ORDERED: MAG HYDROX/AL HYDROX/SIMETH 30 ML UNIT-DOSE CUP PO ONE (01:00)
[2018-05-17] MEDS: methylPREDNISolone NA SUCC 40 MG/1 ML VIAL IVPUSH SCH ×4 (02:10→21:27)
--- NOTE | 2018-05-17 07:51 | PN ---
Progress Note, Physician History of Present Illness: PULMONARY ALERT,FEELING BETTER,LESS CONGESTION - Current Medication List Current Medications: Active Medications Acetaminophen (Tylenol -) 650 mg PO Q4H PRN PRN Reason: FEVER Acetaminophen/Butalbital/Caffeine (Fioricet -) 1 tablet PO DAILY PRN PRN Reason: HEADACHE Albuterol/Ipratropium (Duoneb -) 1 amp NEB RQID [facility] Last Admin: 05/16/18 21:18 Dose: 1 amp Budesonide/Formoterol Fumarate (Symbicort 160/4.5mcg -) 2 puff IH BID [facility] Last Admin: 05/16/18 21:20 Dose: 2 puff Citalopram Hydrobromide (Celexa -) 40 mg PO DAILY [facility] Last Admin: 05/16/18 10:21 Dose: 40 mg Enoxaparin Sodium (Lovenox -) 40 mg SQ DAILY [facility] Last Admin: 05/16/18 10:20 Dose: 40 mg Famotidine (Pepcid -) 40 mg PO DAILY [facility] Last Admin: 05/16/18 10:21 Dose: 40 mg Methylprednisolone Sodium Succinate (Solu-Medrol -) 40 mg IVPUSH Q6H-IV [facility] Last Admin: 05/17/18 02:10 Dose: 40 mg Metoprolol Succinate (Toprol Xl -) 100 mg PO HS [facility] Last Admin: 05/16/18 21:19 Dose: 100 mg Montelukast Sodium (Singulair -) 10 mg PO HS [facility] Last Admin: 05/16/18 21:19 Dose: 10 mg Topiramate (Topamax -) 25 mg PO DAILY@1000 [facility] Last Admin: 05/16/18 10:22 Dose: 25 mg Topiramate (Topamax -) 50 mg PO HS [facility] Last Admin: 05/16/18 21:18 Dose: 50 mg Zolpidem Tartrate (Ambien -) 5 mg PO HS PRN PRN Reason: INSOMNIA - Objective Vital Signs: Vital Signs Temperature 98.4 F 05/17/18 06:00 Pulse Rate 78 05/17/18 06:00 Respiratory Rate 18 05/17/18 06:00 Blood Pressure 129/64 05/17/18 06:00 O2 Sat by Pulse Oximetry (%) 98 05/17/18 06:20 Constitutional: Yes: Well Nourished, Calm Eyes: Yes: WNL HENT: Yes: WNL Neck: Yes: WNL Cardiovascular: Yes: Regular Rate and Rhythm, S1, S2 Respiratory: Yes: Wheezes (FEW SCATTERED WHEEZES) Gastrointestinal: Yes: Normal Bowel Sounds, Soft Extremities: Yes: WNL Edema: No Labs: CBC, BMP Assessment/Plan Problem List - Problems (1) Acute bronchitis with asthma Code(s): J20.9 - ACUTE BRONCHITIS, UNSPECIFIED; J45.909 - UNSPECIFIED ASTHMA, UNCOMPLICATED 2 HTN Assessment/Plan o2 steroids taper antibiotics bronchodilators singulair peak flow pfts outpatient DR BLAND
--- NOTE | 2018-05-17 09:52 | PN ---
Physical Exam: SUBJECTIVE: Patient seen and examined, reports feeling better less cough OBJECTIVE:Patient is a 58 y/o obese female, with a past medical history of migraines and asthma. patient was admitted from the emergency department for acute asthma exacerbation. Vital Signs Period Temp Pulse Resp BP Sys/Le Pulse Ox Last 24 Hr 98.4 F-99.2 F 73-84 17-18 125-152/63-82 92-100 GENERAL: The patient is awake, alert, and fully oriented, in no acute distress. HEAD: Normal with no signs of trauma. EYES: PERRL, extraocular movements intact, sclera anicteric, conjunctiva clear. No ptosis. ENT: Ears normal, nares patent, oropharynx clear without exudates, moist mucous membranes. NECK: Trachea midline, full range of motion, supple. LUNGS: Breath sounds equal, clear to auscultation bilaterally to apexes, diminished to bases, no wheezes, no crackles, no accessory muscle use. HEART: Regular rate and rhythm, S1, S2 without murmur, rub or gallop. ABDOMEN: Soft, nontender, nondistended, normoactive bowel sounds, no guarding, no rebound, no hepatosplenomegaly, no masses. EXTREMITIES: 2+ pulses, warm, well-perfused, no edema. NEUROLOGICAL: Cranial nerves II through XII grossly intact. Normal speech, gait not observed. PSYCH: Normal mood, normal affect. SKIN: Warm, dry, normal turgor, no rashes or lesions noted Laboratory Results - last 24 hr 05/15/18 10:55 Lyme Screen IgG & IgM <0.91 Lyme IgM Quantitation <0.80 Active Medications Generic Name Dose Route Start Last Admin Trade Name Freq PRN Reason Stop Dose Admin Acetaminophen 650 mg 05/14/18 14:24 Tylenol - PO Q4H PRN FEVER Acetaminophen/Butalbital/Caffeine 1 tablet 05/14/18 14:00 Fioricet - PO DAILY PRN HEADACHE Albuterol/Ipratropium 1 amp 05/14/18 16:00 05/16/18 21:18 Duoneb - NEB 1 amp RQID ORLIN Administration Budesonide/Formoterol Fumarate 2 puff 05/15/18 10:30 05/16/18 21:20 Symbicort 160/4.5mcg - IH 2 puff BID ORLIN Administration Citalopram Hydrobromide 40 mg 05/15/18 10:00 05/16/18 10:21 Celexa - PO 40 mg DAILY ORLIN Administration Enoxaparin Sodium 40 mg 05/15/18 10:00 05/16/18 10:20 Lovenox - SQ 40 mg DAILY ORLIN Administration Famotidine 40 mg 05/15/18 10:00 05/16/18 10:21 Pepcid - PO 40 mg DAILY ORLIN Administration Methylprednisolone Sodium Succinate 40 mg 05/17/18 14:00 Solu-Medrol - IVPUSH TID ORLIN Metoprolol Succinate 100 mg 05/14/18 22:00 05/16/18 21:19 Toprol Xl - PO 100 mg HS ORLIN Administration Montelukast Sodium 10 mg 05/15/18 22:00 05/16/18 21:19 Singulair - PO 10 mg HS ORLIN Administration Topiramate 25 mg 05/15/18 10:00 05/16/18 10:22 Topamax - PO 25 mg DAILY@1000 ORLIN Administration Topiramate 50 mg 05/14/18 22:00 05/16/18 21:18 Topamax - PO 50 mg HS ORLIN Administration Zolpidem Tartrate 5 mg 05/14/18 14:24 Ambien - PO HS PRN INSOMNIA Microbiology 05/14/18 12:18 Blood - Peripheral Venous Blood Culture - Preliminary NO GROWTH OBTAINED AFTER 48 HOURS, INCUBATION TO CONTINUE FOR 3 DAYS. 05/14/18 12:06 Blood - Peripheral Venous Blood Culture - Preliminary NO GROWTH OBTAINED AFTER 48 HOURS, INCUBATION TO CONTINUE FOR 3 DAYS. 05/14/18 23:30 Urine - Urine Clean Catch Urine Culture - Final Contaminated: Please Repeat 05/14/18 14:30 Nasopharyngeal Swab Influenza Types A,B Antigen - Final, negative 05/14/18 14:30 Nasopharyngeal Swab - Final, negative IMAGING chest xray: no acute pathology ct of chest: no acute pathology ASSESSMENT/PLAN: 1) pulm asthma excerbation - continue solumedrol 40mg tid with taper. - continue Symbicort and standing duo nebs - Keep SpO2 above 92% with supplemental O2 as needed - pulmonary consulted and followed 2) neuro migraine headaches - continue fiorcet f/e/n - regular diet - replete electrolytes prn ppx lovenox pepcid dispo: pt requires inpatient admission Visit type - Emergency Visit Emergency Visit: Yes ED Registration Date: 05/14/18 Care time: The patient presented to the Emergency Department on the above date and was hospitalized for further evaluation of their emergent condition. - New Patient This patient is new to me today: No - Critical Care Critical Care patient: No - Discharge Referral Referred to [facility] Med P.C.: No
[2018-05-17] MEDS: CITALOPRAM HYDROBROMIDE 20 MG TABLET (FP) PO SCH (09:54)
[2018-05-17] MEDS: ALBUTEROL SO4 2.5/IPRATROPIUM 0.5 INH SOL 3 ML VIAL.NEB. NEB SCH ×4 (09:54→20:09)
[2018-05-17] MEDS: ENOXAPARIN NA (PORCINE) 40 MG/0.4 ML DISP.SYRIN SQ SCH (09:55)
[2018-05-17] MEDS: FAMOTIDINE 20 MG TABLET PO SCH (09:55)
[2018-05-17] MEDS: TOPIRAMATE 25 MG TABLET (FP) PO SCH ×2 (09:56→21:27)
[2018-05-17] MEDS: BUDESONIDE/FORMETEROL FUMARATE 160/4.5 mcg INHALER IH SCH ×2 (10:20→21:29)
[2018-05-17] MEDS: MONTELUKAST NA 10 MG TABLET PO SCH (21:27)
[2018-05-18] MEDS: methylPREDNISolone NA SUCC 40 MG/1 ML VIAL IVPUSH SCH (06:02)
[2018-05-18 06:47] VITALS: BP 131/84; PULSE 73; TEMP 98.1
[2018-05-18] MEDS: ALBUTEROL SO4 2.5/IPRATROPIUM 0.5 INH SOL 3 ML VIAL.NEB. NEB SCH ×2 (08:05→12:38)
[2018-05-18] MEDS ORDERED: PT OWN MED DRAWER 7, Y5N ONE (09:37)
[2018-05-18] MEDS: FAMOTIDINE 20 MG TABLET PO SCH (09:42)
[2018-05-18] MEDS: CITALOPRAM HYDROBROMIDE 20 MG TABLET (FP) PO SCH (09:44)
[2018-05-18] MEDS: ENOXAPARIN NA (PORCINE) 40 MG/0.4 ML DISP.SYRIN SQ SCH (09:44)
[2018-05-18] MEDS: BUDESONIDE/FORMETEROL FUMARATE 160/4.5 mcg INHALER IH SCH (09:45)
[2018-05-18] MEDS: TOPIRAMATE 25 MG TABLET (FP) PO SCH (09:46)
--- NOTE | 2018-05-18 10:35 | DS ---
Physical Exam: SUBJECTIVE: Patient seen and examined, patient reports breathing is much improved denies any chest pain, denies any dyspnea upon exertion. OBJECTIVE:Patient is a 58 y/o obese female, with a past medical history of migraines and asthma. Patient reports cough, shortness of breath with wheezing for the Past week. Patient reports worsening of dyspnea on exertion within the past 24 hours and night sweats and was referred by her primary care physician to the Emergency department for further evaluation. Of note patient reports frequent URIs within the past year, she reports 3 episodes of bronchitis within the past year. ER course was notable for: (1)Chest x-ray no Evidence of acute pulmonary disease (2)temp 101.1 upon arrival (3)spo2 91% (4) wbc 9.0 Vital Signs Period Temp Pulse Resp BP Sys/Le Pulse Ox Last 24 Hr 98.1 F-98.8 F 73-93 16-19 130-144/65-84 95-99 PHYSICAL EXAM GENERAL: The patient is awake, alert, and fully oriented, in no acute distress. HEAD: Normal with no signs of trauma. EYES: PERRL, extraocular movements intact, sclera anicteric, conjunctiva clear. ENT: Ears normal, nares patent, oropharynx clear without exudates, moist mucous membranes. NECK: Trachea midline, full range of motion, supple. LUNGS: Breath sounds equal, clear to auscultation bilaterally, diminished to bases, no crackles, no accessory muscle use. HEART: Regular rate and rhythm, S1, S2 without murmur, rub or gallop. ABDOMEN: Soft, nontender, nondistended, normoactive bowel sounds, no guarding, no rebound, no hepatosplenomegaly, no masses. EXTREMITIES: 2+ pulses, warm, well-perfused, no edema. NEUROLOGICAL: Cranial nerves II through XII grossly intact. Normal speech, gait not observed. PSYCH: Normal mood, normal affect. SKIN: Warm, dry, normal turgor, no rashes or lesions noted. LABS CBC WBC 7.9 K/mm3 (4.0-10.8) 05/16/18 07:30 RBC 4.09 M/mm3 (3.60-5.2) 05/16/18 07:30 Hgb 13.1 GM/dl (10.7-15.3) 05/16/18 07:30 Hct 39.5 % (32.4-45.2) 05/16/18 07:30 MCV 96.5 fl (80-96) H 05/16/18 07:30 MCH 31.9 pg (25.7-33.7) 05/16/18 07:30 MCHC 33.1 g/dl (32.0-36.0) 05/16/18 07:30 RDW 13.0 % (11.6-15.6) 05/16/18 07:30 Plt Count 281 K/MM3 (134-434) 05/16/18 07:30 MPV 7.8 fl (7.5-11.1) 05/16/18 07:30 Absolute Neuts (auto) 6.4 K/mm3 05/16/18 07:30 Neutrophils % 79.8 % (42.8-82.8) 05/16/18 07:30 Lymphocytes % 13.2 % (8-40) 05/16/18 07:30 Monocytes % 5.6 % (3.8-10.2) 05/16/18 07:30 Eosinophils % 1.1 % (0-4.5) 05/16/18 07:30 Basophils % 0.3 % (0-2.0) 05/16/18 07:30 CMP Sodium 141 mmol/L (136-145) 05/16/18 07:30 Potassium 4.7 mmol/L (3.5-5.1) 05/16/18 07:30 Chloride 108 mmol/L (98-107) H 05/16/18 07:30 Carbon Dioxide 24 mmol/L (22-28) 05/16/18 07:30 Anion Gap 9 MMOL/L (8-16) 05/16/18 07:30 BUN 18 mg/dl (7-18) 05/16/18 07:30 Creatinine 0.7 mg/dl (0.6-1.3) 05/16/18 07:30 Creat Clearance w eGFR > 60 (>60) 05/16/18 07:30 Random Glucose 120 mg/dl (74-106) H 05/16/18 07:30 Lactic Acid 1.3 mmol/L (0.4-2.0) 05/14/18 12:06 Calcium 9.0 mg/dl (8.4-10.2) 05/16/18 07:30 Phosphorus 2.9 mg/dl (2.5-4.6) 05/15/18 08:22 Magnesium 2.2 mg/dL (1.8-2.4) 05/16/18 07:30 Total Bilirubin 0.5 mg/dl (0.2-1.0) 05/14/18 12:06 AST 17 U/L (10-42) D 05/14/18 12:06 ALT 18 U/L (10-40) D 05/14/18 12:06 Alkaline Phosphatase 92 U/L (32-92) 05/14/18 12:06 Troponin I < 0.03 ng/ml (0.00-0.06) 05/14/18 12:06 Total Protein 7.7 g/dl (6.4-8.3) 05/14/18 12:06 Albumin 4.4 g/dl (3.5-5.0) 05/14/18 12:06 Laboratory Tests 05/15/18 05/15/18 08:22 10:55 Lyme Screen IgG & IgM <0.91 Lyme IgM Quantitation <0.80 HIV 1&2 Antibody Screen Negative HIV P24 Antigen Negative Microbiology 05/16/18 18:00 Urine - Urine Clean Catch Urine Culture - Final NO GROWTH OBTAINED 05/14/18 12:18 Blood - Peripheral Venous Blood Culture - Preliminary NO GROWTH OBTAINED AFTER 72 HOURS, INCUBATION TO CONTINUE FOR 2 DAYS. 05/14/18 12:06 Blood - Peripheral Venous Blood Culture - Preliminary NO GROWTH OBTAINED AFTER 72 HOURS, INCUBATION TO CONTINUE FOR 2 DAYS. 05/14/18 23:30 Urine - Urine Clean Catch Urine Culture - Final Contaminated: Please Repeat 05/14/18 14:30 Nasopharyngeal Swab Influenza Types A,B Antigen - Final, negative 05/14/18 14:30 Nasopharyngeal Swab - Final, negative IMAGING chest xray: no acute pathology ct of chest: no acute pathology HOSPITAL COURSE: 1) asthma excerbation - patient was treated with solumedrol then transitioned to prednisone . - initally given zithromax for 48 hours, patient developed pruritis to IV site, zithromax was discontinued - Symbicort and standing duo nebs - SpO2 was kept above 92% with supplemental O2 as needed - pulmonary consulted and followed 2) migraine headaches - fiorcet was continued PLAN - discharge home with predisone taper, continue symbicort, albuterol nebulizer prn - strict follow up with Dr Tillman/Danica within 2 weeks - return precautions reviewed with patient and patient verbalizes understanding Date of Admission:05/14/18 Date of Discharge: 05/18/18 Minutes to complete discharge: 45 Discharge Summary Reason For Visit: SOB, EXACERBATION Current Active Problems Acute bronchitis with asthma (Acute) Asthma exacerbation (Acute) Shortness of breath (Acute) Condition: Improved - Instructions Diet, Activity, Other Instructions: resume regular low sodium diet continue prednisone as prescribed, please take prednisone with food continue taking pepcid when taking prednisone continue symbicort daily and albuterol nebulizer every 4 hours as needed for shortness of breath or wheezing please follow up with the catalogue librarian within 2 weeks please follow-up with your primary care physician Dr. Blair within 2 weeks if any new persistent symptoms develop please return to emergency department Referrals: Azam Mishra MD [Staff Physician] - Ralph Blair MD [Primary Care Provider] - Disposition: HOME - Home Medications Comprehensive Discharge Medication List: Ambulatory Orders Butalb/Acetaminophen/Caffeine [Cdmlay-Prpecpdw-Yhit [id number]] 1 each PO DAILY 05/14/18 This patient is new to me today: No Emergency Visit: Yes ED Registration Date: 05/14/18 Care time: The patient presented to the Emergency Department on the above date and was hospitalized for further evaluation of their emergent condition. Critical Care patient: No - Discharge Referral Referred to [facility] Med P.C.: No
--- NOTE | 2018-05-18 11:37 | PN ---
Progress Note (short form) - Note Progress Note: PULMONARY LESS CONGESTED WITH COUGH/ WHEEZE VSS/AFEBRILE ANICTERIC SCATTERED B/L RHONCHI LESS WHEEZE S1S2 BS+ NO EDEMA LABS/MEDS/MICRO/NOTES IMAGES REVIEWED ACUTE ASTHMATIC BRONCHITIS RESOLVING CONTINUE PRESENT TREATMENT OUTPATIENT CHANGE TO PREDNISONE 40 MG DAILY UNTILL SEEN BY ME NEXT WEEK Leatha RUIZ MD Problem List - Problems (1) Acute bronchitis with asthma Code(s): J20.9 - ACUTE BRONCHITIS, UNSPECIFIED; J45.909 - UNSPECIFIED ASTHMA, UNCOMPLICATED
[2018-05-18] MEDS ORDERED: predniSONE 20 MG TABLET (UD) PO ONE (11:45)
== END 2018-05-18 13:15 | disposition home or self-care (01) | DRG 203 ==
LOC: FER 11:50 → FM/S 13:37 → UNDOADMIN 15:34 → FM/S 05-15 18:19
PROVIDERS: ADMIT Hospitalist; ATTEND Nurse Practitioner Family
PROC: 3E0F7GC Introduction of Other Therapeutic Substance into Respiratory Tract, Via Natural or Artificial Opening (ICD-10-PCS; principal; 2018-05-14)
DX: J45.901 Unspecified asthma with (acute) exacerbation (principal); J20.9 Acute bronchitis, unspecified; I10 Essential (primary) hypertension; E66.9 Obesity, unspecified; Z68.35 Body mass index [BMI] 35.0-35.9, adult; G43.809 Other migraine, not intractable, without status migrainosus
CPT/HCPCS: 36415; 71046-TC-FY; 71250-TC; 80048; 80053; 81003; 81015; 82803; 83605; 83735; 84100; 84484; 85025; 86618; 87040; 87086; 87389; 87804; 93005; 94640; 99284-25; J7620

== ENCOUNTER 2018-08-26 18:31 | Emergency (ER) | payer BC ==
--- NOTE | 2018-08-26 18:43 | PDOC ---
History of Present Illness - General Chief Complaint: Pain Stated Complaint: RIGHT LOWER BACK PAIN INTO GROIN AND DOWN LEG History Source: Patient Exam Limitations: No Limitations - History of Present Illness Initial Comments: 08/26/18 18:44 58 y/o female on steroids for respiratory issues presents to ER with right leg pain for several weeks. Denies SOB or chest pain. Fell several weeks ago. Taking Tylenol and Motrin, worse as day goes on. No fever or chills. Has pain that radiates from groin to knee. Concerned that she might have a DVT. No swelling. Patient denies back pain. Pain is behind buttocks and back of leg. Past History - Past Medical History Allergies/Adverse Reactions: Allergies Allergy/AdvReac Type Severity Reaction Status Date / Time doxycycline Allergy Severe anaphylaxis Verified 08/26/18 18:33 clarithromycin Allergy Intermediate Hives Verified 08/26/18 18:34 levofloxacin [From Levaquin] Allergy Intermediate Hives Verified 08/26/18 18:37 methazolamide Allergy Intermediate Hives Verified 08/26/18 18:34 Penicillins Allergy Intermediate Hives Verified 08/26/18 18:37 Sulfa (Sulfonamide Allergy Intermediate Lip Verified 08/26/18 18:34 Antibiotics) swelling Home Medications: Ambulatory Orders Metoprolol Succinate [Toprol Xl] 100 mg PO DAILY 08/26/18 predniSONE [Deltasone -] 20 mg PO DAILY 08/26/18 Asthma: Yes COPD: No DVT: No HTN: Yes - Suicide/Smoking/Psychosocial Hx Smoking History: Never smoked Hx Alcohol Use: No Drug/Substance Use Hx: No Substance Use Type: None Hx Substance Use Treatment: No Review of Systems - Review of Systems Able to Perform ROS?: Yes Is the patient limited Turkmen proficient: No Constitutional: No: Chills, Fever Respiratory: No: Cough, Shortness of Breath Cardiac (ROS): No: Chest Pain ABD/GI: No: Nausea, Vomiting Musculoskeletal: Yes: Muscle Pain. No: Back Pain Integumentary: No: Bruising, Pruritus, Rash Hematologic/Lymphatic: No: Blood Clots *Physical Exam - Physical Exam General Appearance: Yes: Nourished, Appropriately Dressed. No: Apparent Distress HEENT: positive: EOMI, ANEUDY, Normal ENT Inspection, Normal Voice, Symmetrical, Pharynx Normal Neck: positive: Trachea midline, Normal Thyroid, Supple. negative: Tender, Rigid Respiratory/Chest: positive: Lungs Clear, Normal Breath Sounds. negative: Chest Tender, Respiratory Distress Cardiovascular: positive: Regular Rhythm, Regular Rate, S1, S2. negative: Edema , JVD, Murmur Vascular Pulses: Femoral (R): 4+, Femoral (L): 4+, Carotid (R): 4+, Carotid (L) : 4+, Dorsalis-Pedis (R): 4+, Doralis-Pedis (L): 4+ Gastrointestinal/Abdominal: positive: Normal Bowel Sounds, Flat. negative: Tender, Organomegaly, Pulsatile Mass Lymphatic: negative: Adenopathy, Tenderness, Other Musculoskeletal: positive: Normal Inspection. negative: CVA Tenderness Extremity: positive: Normal Capillary Refill, Normal Inspection, Normal Range of Motion, Tender. negative: Swelling (no external rotation or leg shortening to right leg, no lumbar tenderness ot SI tenderness, full ROM, strength 5+/5 b/ l in LE, no focal deficits no calf tenderness b/l), Calf Tenderness Integumentary: positive: Normal Color, Dry, Warm Neurologic: positive: watch crystal cutter II-XII NML intact, Fully Oriented, Alert, Normal Mood/ Affect, Normal Response, Motor Strength 5/5 ED Treatment Course - ADDITIONAL ORDERS Additional order review: 08/26/18 18:48 Right leg pain, appears to be sciatica but pt requesting US to r/o DVT Case will be endorsed to Dr. Webster at 1900 *DC/Admit/Observation/Transfer Diagnosis at time of Disposition: Sciatica Qualifiers: Laterality: right Qualified Code(s): M54.31 - Sciatica, right side - Discharge Dispostion Condition at time of disposition: Stable - Referrals - Patient Instructions - Post Discharge Activity
[2018-08-26 18:45] VITALS: BP 121/84; PULSE 82; TEMP 98.1; BMI 35.8
--- NOTE | 2018-08-26 22:21 | PDOC ---
*Physical Exam - Vital Signs Last Vital Signs Temp Pulse Resp BP Pulse Ox 98.1 F 82 16 121/84 100 08/26/18 18:33 08/26/18 18:33 08/26/18 18:33 08/26/18 18:33 08/26/18 18:33 Medical Decision Making - Medical Decision Making 08/26/18 22:16 Asked to follow-up ultrasound to rule out DVT. No DVT noted on ultrasound History and examination is most consistent with sciatica we'll prescribe short course of Flexeril with anti-inflammatory Patient will follow up with her primary care provider on Monday to arrange for outpatient MRI she will return to ED for any weakness uncontrollable pain or incontinence *DC/Admit/Observation/Transfer Diagnosis at time of Disposition: Sciatica Qualifiers: Laterality: right Qualified Code(s): M54.31 - Sciatica, right side - Discharge Dispostion Disposition: HOME Condition at time of disposition: Stable Decision to Admit order: No - Referrals Referrals: Ralph Blair MD [Staff Physician] - - Patient Instructions Printed Discharge Instructions: Sciatica Additional Instructions: Take 2 tabs Aleve twice a day for the next 3 days. Flexeril as prescribed. Follow-up with your doctor Monday to arrange for outpatient MRI. Return to the emergency department immediately for any weakness severe uncontrollable pain bladder or bowel incontinence or for any concerns. He can also follow-up with Dr. Lang orthopedics - Post Discharge Activity
== END 2018-08-26 22:25 | disposition home or self-care (01) ==
LOC: SUPCPDRO 18:31 → FER 18:31
DX: M54.31 Sciatica, right side (principal); I10 Essential (primary) hypertension; J45.909 Unspecified asthma, uncomplicated
CPT/HCPCS: 93971-TC; 99282-25